=== PATIENT | male | born 1975 | race Two or more races ===

== ENCOUNTER 2022-12-20 13:07 | Emergency (ER) | payer MEDICAID ==
[~2022-12-20] VITALS: Ht 172.7 cm; Wt 70.2 kg
[2022-12-20 13:27] VITALS: BP 116/81
[2022-12-20] MEDS ORDERED: IBUP800T27 PO (13:34)
[2022-12-20] MEDS ORDERED: TRIA0.02 TOP (13:34)
[2022-12-20] MEDS ORDERED: ACYC-166 PO (13:34)
[2022-12-20] MEDS ORDERED: HYDROcodone-ACET 5/325MG TAB PO ONE (13:45)
== END 2022-12-20 13:45 | disposition home or self-care (01) ==
LOC: ER 13:07
DX: B02.9 Zoster without complications (principal); Z88.6 Allergy status to analgesic agent

== ENCOUNTER 2023-01-15 15:34 | Emergency (ER) | payer MEDICAID ==
[~2023-01-15] VITALS: Ht 172.7 cm; Wt 75.0 kg
[~2023-01-15 15:34] MED LIST: ACYC-166 PO; IBUP800T27 PO; TRIA0.02 TOP
[2023-01-15 15:46] VITALS: BP 112/63
== END 2023-01-15 16:59 | disposition home or self-care (01) ==
LOC: ER 15:34
DX: G58.8 Other specified mononeuropathies (principal); Z79.1 Long term (current) use of non-steroidal anti-inflammatories (NSAID); Z79.899 Other long term (current) drug therapy